=== PATIENT | male | born 1955 | race Caucasian/White ===

== ENCOUNTER 2017-08-09 21:13 | Emergency (ER) | payer OTHER ==
[~2017-08-09] VITALS: Ht 170.2 cm; Wt 88.6 kg
[2017-08-09 21:14] VITALS: BP 168/90; PULSE 110; RESP 16
--- NOTE | 2017-08-09 22:52 | PD ---
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 when he went to work they told him he must be cleared with a chest x-ray and comes to the ER for a chest x-ray to clear him ..he does not have any sore throat no shortness of breath , no cough, no fever , no signs of active TB. Allergies-Medications (Allergen,Severity, Reaction): Coded Allergies: erythromycin base (Verified Allergy, Intermediate, 08/09/17) RASH Review of Systems Except as stated in HPI: all other systems reviewed are Neg (patient has no symptoms whatsoever he just had a positive PPD that was questionably red and they were not sure so they sent to the ER for a chest x-ray) Physical Exam Narrative GENERAL: Awake alert nontoxic appearing no cough no fever SKIN: Warm and dry. HEAD: Atraumatic. Normocephalic. EYES: Pupils equal and round. No scleral icterus. No injection or drainage. ENT: No nasal bleeding or discharge. Mucous membranes pink and moist. NECK: Trachea midline. No JVD. CARDIOVASCULAR: Regular rate and rhythm. RESPIRATORY: No accessory muscle use. Clear to auscultation. Breath sounds equal bilaterally. Complete the clear auscultation of his lungs in all brown no wheezes no cough GASTROINTESTINAL: Abdomen soft, non-tender, nondistended. Hepatic and splenic margins not palpable. MUSCULOSKELETAL: Extremities without clubbing, cyanosis, or edema. No obvious deformities. NEUROLOGICAL: Awake and alert. No obvious cranial nerve deficits. Motor grossly within normal limits. Five out of 5 muscle strength in the arms and legs. Normal speech. PSYCHIATRIC: Appropriate mood and affect; insight and judgment normal. Data Data Last Documented VS Orders Orders Chest, Pa & Lat (08/09/17 ) [place] Medical Decision Making Medical Screen Exam Complete: Yes Emergency Medical Condition: Yes Differential Diagnosis Patient was sent for correctional facility for possible TB exposure he had a PPD that was questionably positive. Before clearing him they wanted him have a chest x-ray sent to the ER differential diagnosis is mistaken interpretation of the PPD versus slight antibiotic reaction to PPD versus having active tuberculosis Narrative Course Chest x-ray is completely normal patient's lung exam is completely normal and a medically clear him to follow-up with a repeat chest x-ray in 3 months cleared for return to work for his correctional facility Diagnosis Primary Impression: Positive PPD Patient Instructions: General Instructions, Normal Exam (ED) Disposition: 01 DISCHARGE HOME Condition: Good Hakan Mead MD Aug 09, 2017 22:52
--- NOTE | 2017-08-09 22:57 | RADRPT ---
EXAM DATE/TIME: 08/09/2017 22:43 [facility] COMPARISON: No previous studies available for comparison. INDICATIONS : Positive PPD test. MEDICAL HISTORY : High blood pressure. SURGICAL HISTORY : None. ENCOUNTER: Initial ACUITY: 1 day PAIN SCORE: 0/10 LOCATION: Bilateral chest FINDINGS: PA and lateral views of the chest demonstrate the lungs to be symmetrically aerated without evidence of mass, infiltrate or effusion. The cardiomediastinal contours are unremarkable. Osseous structure s are intact. CONCLUSION: 1. No acute cardiopulmonary disease. Solitario Matthews MD on August 09, 2017 at 22:55 Board Certified Radiologist. This report was verified electronically.
== END 2017-08-09 23:44 | disposition home or self-care (01) ==
LOC: NEPC 21:13
DX: R76.11 Nonspecific reaction to tuberculin skin test without active tuberculosis (principal); Y99.0 Civilian activity done for income or pay
CPT/HCPCS: 71046; 99283